=== PATIENT | male | born 1965 | race Caucasian/White ===

== ENCOUNTER 2021-07-22 16:29 | Emergency (ER) | payer OTHER ==
[~2021-07-22] VITALS: Ht 188 cm; Wt 86.2 kg
[2021-07-22] MEDS ORDERED: HYDROCODON-ACE1 EAC7 PO (19:24)
[2021-07-22] MEDS ORDERED: CEPHALEXIN500 MG PO (19:24)
[2021-07-22 19:25] VITALS: BP 154/89
== END 2021-07-22 19:25 | disposition home or self-care (01) ==
LOC: ER 16:29
DX: S91.111A Laceration without foreign body of right great toe without damage to nail, initial encounter (principal); W23.0XXA Caught, crushed, jammed, or pinched between moving objects, initial encounter; Y93.89 Activity, other specified; Y92.89 Other specified places as the place of occurrence of the external cause; Y99.8 Other external cause status